=== PATIENT | female | born 1985 | race Two or more races ===

== ENCOUNTER 2025-06-16 09:12 | Emergency (ER) | payer MEDICAID, SELFPAY ==
[2025-06-16] VITALS (12 sets, daily range): BP systolic 109–141; BP diastolic 71–97; PULSE 74–104; RESP 16–22; TEMP 36.4–36.8; O2SAT 100–104; BMI 21.0
--- NOTE | 2025-06-16 09:54 | XR_ITS ---
Examination: Forearm, right, 2 views. Technique: Forearm, AP, lateral 2 views Date and time of exam: June 16, 2025, 0957 hours INDICATIONS: Patient fell off a horse today with injury to the forearm, forearm pain. FINDINGS: Nonstandard views Comminuted displaced impacted angulated fracture distal radial metaphysis Radial head and olecranon appear intact IMPRESSION: Comminuted impacted angulated fractures distal radial metaphysis
--- NOTE | 2025-06-16 09:54 | XR_ITS ---
Examination: Shoulder, right, 3 views Technique: Shoulder AP internal rotation, AP external rotation, Y view shoulder, 3 views Exam date and time : June 16, 2025, 0959 hours INDICATIONS: Patient in follow-up for worse today with injury to the shoulder, shoulder pain. FINDINGS: No shoulder fracture or dislocation. No AC joint separation IMPRESSION: No shoulder fracture or dislocation
--- NOTE | 2025-06-16 09:54 | XR_ITS ---
Examination: Humerus 2 views right Technique: Humerus, AP lateral 2 views Date and time of exam: June 16, 2025, 0957 hours INDICATIONS: Patient in follow-up for worse today with injury to the right arm, right arm pain. FINDINGS: No shoulder fracture or dislocation Shaft of the humerus intact IMPRESSION: No acute fracture
--- NOTE | 2025-06-16 09:54 | XR_ITS ---
Examination: Hand, right 2 views Technique: AP lateral right hand 2 views Date and time: June 16, 2025, 10:10 a.m. INDICATIONS: Patient fell off a horse today with injury to the hand and wrist, hand pain wrist pain. FINDINGS: Acute intra-articular impacted displaced fractures distal radial metaphysis Displaced fracture ulnar styloid tip No foreign body IMPRESSION: Acute intra-articular impacted displaced fractures distal radial metaphysis
--- NOTE | 2025-06-16 09:54 | XR_ITS ---
Examination: Right elbow 3 views Technique: Elbow AP, oblique, lateral 3 views Exam date and time: June 16 0 25, 1004 hours INDICATIONS: Patient fell off a horse today with injury to the elbow, elbow pain. FINDINGS: No fracture or dislocation. No foreign body IMPRESSION: No fracture or dislocation.
[2025-06-16] MEDS: HYDROcodone/APAP 5/325 TABLET 1 TAB PO (10:19)
[2025-06-16] MEDS: ONDANSETRON ODT 4 MG TABRAP PO (10:20)
--- NOTE | 2025-06-16 11:26 | PD.EDRME ---
Rapid Medical Screening Exam REPLACED BY [facility] Arrival date/time: 06/16/25 09:12 This is a 40-year-old female that comes into the emergency room with complaints of right shoulder, entire arm specifically the wrist pain along with hand pain. Patient states she fell off the horse and then the horse rolled on her right arm. Patient denies head neck or back pain. Patient denies loss of consciousness. Patient denies any other injuries. I medicated patient with [place] I have greeted and performed a focused initial assessment of this patient. Initial appropriate labs ordered at this time. A comprehensive ED assessment and evaluation of the patient and analysis of all test and completion of medical decision making process will be conducted by additional ED provider. Chief Complaint: Fall Time Seen by Provider: 06/16/25 09:23 Vital signs: Vital Signs Temperature 97.6 F 06/16/25 09:55 Pulse Rate 76 06/16/25 09:55 Respiratory Rate 18 06/16/25 09:55 Blood Pressure 109/71 06/16/25 09:55 Pulse Oximetry (%) 100 06/16/25 09:55 Oxygen Delivery Method Room Air 06/16/25 09:55
--- NOTE | 2025-06-16 14:09 | PD.EDFALL ---
ED Fall Injury RME/HPI General Chief Complaint: Fall Stated Complaint: BUCKED OFF HORSE TODAY, RIGHT SIDE PAIN Time Seen by Provider: 06/16/25 09:23 Arrival date/time: 06/16/25 09:12 Limitations: no limitations RME / HPI RME / HPI Narrative: 06/16/25 09:12 This is a 40-year-old female that comes into the emergency room with complaints of right shoulder, entire arm specifically the wrist pain along with hand pain. Patient states she fell off the horse and then the horse rolled on her right arm. Patient denies head neck or back pain. Patient denies loss of consciousness. Patient denies any other injuries. I medicated patient with [place] I have greeted and performed a focused initial assessment of this patient. Initial appropriate labs ordered at this time. A comprehensive ED assessment and evaluation of the patient and analysis of all test and completion of medical decision making process will be conducted by additional ED provider. Dr. Cortes evaluation Patient is a 40-year-old female seen e emergency department y concerns for upper extremity pain after having had a fall off of a horse. Patient rides horses frequently. Denies head pain neck pain, pain in her chest, back, hips lower extremities. Patient is not on blood thinners did not lose consciousness. Remembers everything. Remembers everything from the event earlier today. Related Data Previous Rx's ?Medication ?Instructions ?Recorded hydrocodone 5 mg-acetaminophen 325 1 tab PO Q6H PRN pain #14 tabs 06/16/25 mg tablet naloxone 4 mg/actuation nasal 4 mg intranasal Q2M PRN opioid 06/16/25 spray (Narcan) overdose #2 ea Allergies Allergy/AdvReac Type Severity Reaction Status Date / Time No Known Allergies Allergy Verified 06/16/25 09:16 ED Exam General Limitations: Present no limitations General appearance: Present alert and in no apparent distress Head Head exam: Present atraumatic and normocephalic Eye Eye exam: Present normal appearance and PERRL ENT ENT exam: Present normal exam and normal oropharynx Neck Neck exam: Present normal inspection and full ROM; Absent tenderness Chest Chest inspection: Present normal inspection and symmetric chest wall rise Respiratory Respiratory exam: Present normal lung sounds bilaterally; Absent respiratory distress Cardiovascular Cardiovascular exam: Present regular rate and normal rhythm Abdominal Exam Abdominal exam: Present soft; Absent distention or tenderness Extremities Exam Extremities exam: Present other (Left upper extremity normal, no tenderness palpation bilateral lower extremities, no pelvic instability, no chest pain to palpation, tenderness ovation along the right wrist, with visible and palpable deformity, 2+ radial, ulnar pulses brisk capillary refill) Back Exam Back exam: Present normal inspection Neurological Exam Neurological exam: Present alert, oriented X3, CN II-XII intact, normal gait and other (Patient with weakness in her 3rd, 4th and 5th digit, difficulties with mobility, has decree sensation along all 5 digits however worse on digit 345) Course Quality Measures none Orders Category Date Time Status Conscious Sedation [RT Stand By for Procedure] NOW Care 06/16/25 14:13 Completed XR elbow comp RT min 3V Stat Exams 06/16/25 09:54 Completed XR forearm RT 2V Stat Exams 06/16/25 09:54 Completed XR hand RT 2V Stat Exams 06/16/25 09:54 Completed XR humerus RT min 2V Stat Exams 06/16/25 09:54 Completed XR shoulder RT min 2V Stat Exams 06/16/25 09:54 Completed XR wrist RT 2V Stat Exams 06/16/25 15:43 Completed HYDROcodone*/APAP 5/325 [[place] 5/325] Med 06/16/25 09:54 Discontinued 1 tab PO X1 ONE Ketamine Inj Med 06/16/25 14:12 Discontinued 25 mg IVP X1 ONE Ketamine Inj Med 06/16/25 16:02 Discontinued 25 mg IVP X1 ONE Ketamine Inj Med 06/16/25 15:30 Discontinued 50 mg IVP X1 ONE Ondansetron Odt [Zofran Odt] Med 06/16/25 09:54 Discontinued 4 mg PO X1 ONE Propofol Inj [Diprivan Inj] Med 06/16/25 14:12 Discontinued 25 mg IV X1 ONE fentaNYL INJ [Sublimaze Inj] Med 06/16/25 15:09 Discontinued 25 mcg IVP X1 ONE Vital Signs Vital signs: Vital Signs Temperature 97.6 F 06/16/25 09:55 Pulse Rate 76 06/16/25 09:55 Respiratory Rate 18 06/16/25 09:55 Blood Pressure 109/71 06/16/25 09:55 Pulse Oximetry (%) 100 06/16/25 09:55 Oxygen Delivery Method Room Air 06/16/25 09:55 Fall MDM Narrative MDM Narrative:: Patient is a 40-year-old female seen emerged department with concerns for right upper extremity pain. Prior provider evaluated patient. Ordered x-rays of the right upper extremity. Concern for fracture dislocation, soft tissue injury. Patient is vascularly intact. Has 2+ radial ulnar pulses bilateral symmetric intact. Has decree sensation and decreased range of motion of her right wrist specifically more so in her 3rd through 5th digit of her right hand. X-ray of the right elbow, shoulder, hand and humerus unremarkable. X-ray of the right forearm with comminuted impacted angulated fractures distal radial metaphysis High joint decision made conversation with patient, after hematoma block for fracture reduction versus conscious addition. I did explain this benefits of conscious nation and patient would like to move forward with conscious ideation. Advised patient that it can be important that she follow-up with an orthopedic surgeon within the next 1 to 2 days. Patient also had a question about possibly traveling to [place] in the upcoming week. I let her know that fractures put her at risk for pulmonary emboli and that is important that she discuss with her primary care doctor whether or not it is safe for her to flying Fracture Reduction Procedure Note Indication: fracture right radius, displaced The patient was verbally consented by myself with a discussion that included benefits, alternatives and risks that include nerve or vessel injury, skin injury, additional fracture, etc. They expressed understanding and agreed to proceed. After adequate analgesia a closed fracture was reduced by myself with axial traction and manual manipulation of fracture fragments resulting in improved alignment. There were no apparent complications. Splint was applied. Patient remained neurovascularly intact. Postreduction radiograph shows improved alignment. The patient tolerated the procedure well and there were no complications.? Post application splint/strapping note: After application of the splint/strap, I checked it and found adequate immobilization of the joint and intact distal neurovascular functioning. Patient advised to follow up with pcp within 1-2 days and establish care with an orthopedic surgeon this week. Procedural Sedation Note: Ketamine and Propofol: A pre-sedation evaluation of the patient was performed and is documented on the conscious sedation flowsheet. The procedure was explained to the patient. Consent was obtained. The patient had continuous telemetry, pulse oximetry, and serial blood pressure checks in accordance with policy and as recorded in the conscious sedation flowsheet. Supplemental oxygen was present. Advanced airway support equipment was present in the room. The patient was adequately sedated with Propofol and Ketamine. The patient was observed on monitors with nursing supervision until sedative effects resolved. A post sedation evaluation of the patient was performed and is on the conscious sedation flowsheet.? I was directly involved and monitored the patient for at least 20 minutes starting from time of medication administration, involving face to face monitoring and ending when my personal contact ended. Informed Consent Sedation: The patient or patient senior outside sales representative gave consent after being informed that the risks included but were not limited to stopping breathing, vomiting and aspirating stomach contents into the lungs and having an unexpected reaction to the medication and the benefits include allowing the performance of a normally painful procedure with little or no discomfort and often with amnesia to the procedure as well. The patient tolerated the procedure well and there were no complications. Patient data External records reviewed:: None Clinical information provided by:: patient Social determinants that could affect healthcare access:: none Patient has the following chronic illnesses:: None How is presenting disease/condition affected by chronic disease/condition?: no chronic disease Evaluation data The following diagnostics were reviewed and interpreted by me:: radiology exam(s) Lab and/or radiology exams considered but not ordered:: None Interpretation Summary: See MDM Medications / Prescriptions Medications or Prescriptions considered but not ordered:: None Medication administrations:: Medication Administration History Discontinued Medications Hydrocodone Bitart/Acetaminophen (Hydrocodone/Apap 5/325 Tablet) 1 tab PO X1 ONE Stop: 06/16/25 09:55 Last Admin: 06/16/25 10:19 Dose: 1 tab Documented By: WESLEY Fentanyl Citrate (Fentanyl Cit Inj 50 Mcg/Ml Amp 2ml) 25 mcg IVP X1 ONE Stop: 06/16/25 15:10 Last Admin: 06/16/25 15:15 Dose: 25 mcg Documented By: BY Ketamine HCl (Ketamine 50 Mg/Ml Vial 10 Ml) 25 mg IVP X1 ONE Stop: 06/16/25 14:13 Last Admin: 06/16/25 15:36 Dose: Not Given Documented By: BY Non-Admin Reason: Cancelled by Provider Ketamine HCl (Ketamine 50 Mg/Ml Vial 10 Ml) 25 mg IVP X1 ONE Stop: 06/16/25 16:03 Last Admin: 06/16/25 15:36 Dose: Not Given Documented By: BY Non-Admin Reason: Cancelled by Provider Ketamine HCl (Ketamine 50 Mg/Ml Vial 10 Ml) 50 mg IVP X1 ONE Stop: 06/16/25 15:31 Last Admin: 06/16/25 15:36 Dose: 50 mg Documented By: BY Ondansetron HCl (Ondansetron Odt 4 Mg Tabrap) 4 mg PO X1 ONE; Protocol Stop: 06/16/25 09:55 Last Admin: 06/16/25 10:20 Dose: 4 mg Documented By: WESLEY Propofol (Propofol Inj 10 Mg/Ml Vial 20 Ml) 25 mg IV X1 ONE Stop: 06/16/25 14:13 Last Admin: 06/16/25 15:35 Dose: 25 mg Documented By: BY See above Consultations Consultation(s) initiated? (list below): No Diagnosis Fall Differential Diagnosis: other (see mdm ) Most likely diagnosis given after review of the tests above:: Comminuted impacted angulated fractures distal radial metaphysis Admission Indicated Admission indicated?: not indicated Admission Request Was there a request for admission?: No Disposition Plan Disposition Plan: Discharge Discharge Attestation Discharge Attestation: The patient and all family members were given an opportunity to ask questions and understood the discharge instructions. Discharge instructions specifically effects, indications for sooner follow up or return to the emergency department, and the expected course of current diagnosis. Patient condition: Stable Discharge Plan Plan Patient Disposition: HOME (Self Care) Prescriptions/Referrals Prescriptions/Med Rec: New naloxone [Narcan] 4 mg/actuation spray,non-aerosol 4 mg intranasal Q2M PRN (Reason: opioid overdose) Qty: 2 0RF Rx Instructions: spray 1 dose into ONE nostril; alternate nostrils w each dose until help arrives hydrocodone-acetaminophen 5-325 mg tablet 1 tab PO Q6H MDD 9 PRN (Reason: pain) Qty: 14 0RF Referrals: No Primary/Family,Physician [Primary Care Provider] - In 1 week Problem List Clinical Impression: Closed fracture of right wrist, Fall from horse Patient/Caregiver Discharge Instructions Additional Instructions: Please contact her primary care doctor and establish care with an orthopedic surgeon. I have listed the contact information for a few orthopedic surgeons in the region that you can contact as well. If you have any changes in sensation, skin discoloration or any other symptom of concern. Dr. Kim [address] [place] [address] Dr. Oli Angela [address] [facility], [address] [place] [address] ? ? Print Language: Dutch Stand Alone Forms: Jaqui Award Info., Patient Portal Info Letter
--- NOTE | 2025-06-16 14:20 | PC.NURSE ---
dr. sheth in to talk with pt about conscious sedation. Verbal consent obtained
[2025-06-16] MEDS: fentaNYL CIT INJ 50 mCg/ML AMP 2ML 25 MCG IVP (15:15)
[2025-06-16] MEDS: PROPOFOL INJ 10 MG/ML VIAL 20 ML 25 MG IV (15:35)
[2025-06-16] MEDS: KETAMINE 50 MG/ML VIAL 10 ML IVP (15:36)
--- NOTE | 2025-06-16 15:43 | XR_ITS ---
EXAMINATION: Right wrist 2 views TECHNIQUE: AP lateral right wrist 2 views Date and time: June 16, 2025, 1549 hours, comparison June 16, 2000 2510 0 8:00 a.m. INDICATIONS: Post reduction films comminuted impacted intra-articular fracture distal radius FINDINGS: Significant improvement in fractures distal radial metaphysis On the lateral view the distal ulna is dorsally position, clinical correlation advised IMPRESSION: Significant improvement in fractures distal radial metaphysis
== END 2025-06-16 17:25 | disposition home or self-care (01) ==
PROVIDERS: Emergency Provider Emergency Medicine
DX: S62.101A Fracture of unspecified carpal bone, right wrist, initial encounter for closed fracture (principal); V80.010A Animal-rider injured by fall from or being thrown from horse in noncollision accident, initial encounter; Y93.52 Activity, horseback riding
CPT/HCPCS: 29125; 73030; 73060; 73080; 73090; 73100; 73120; 96374; 96375; 99283; J2704; J3010; Q0162; A9270